=== PATIENT | male | born 1960 | race Two or more races ===

== ENCOUNTER 2023-11-25 09:32 | Inpatient (IN) | payer MEDICAID ==
[~2023-11-25] VITALS: Ht 162.6 cm; Wt 95.0 kg
[2023-11-25 10:43] VITALS: PULSE 98; RESP 17; O2SAT 93
[2023-11-25 11:10] LABS: Alanine Aminotransferase 19 U/L (7-40); Albumin 3.4 g/dL (3.2-4.8); Alkaline Phosphatase 136 U/L (46-116); Anion Gap 9 (5-15); Aspartate Aminotransferase 23 U/L (13-40); BUN/Creatinine Ratio 17.1 (10.0-20.0); Bilirubin, Total 1.5 mg/dL (0.2-1.0); Blood Urea Nitrogen 21 mg/dL (9-23); Carbon Dioxide 28 mmol/L (20-30); Chloride 105 mmol/L (98-107); Glucose 175 mg/dL (74-106); Potassium 3.2 mmol/L (3.5-5.1); Sodium 142 mmol/L (136-145); Total Protein 6.5 g/dL (5.7-8.2)
[2023-11-25 11:11] LABS: Basophils # (auto) 0.1 10 ^3/uL (0-0.2); Basophils % (auto) 1.1 % (0.0-2.0); Eosinophils # (auto) 0 10 ^3/uL (0-0.8); Eosinophils % (auto) 0.9 % (0.0-7.0); Hematocrit 45.3 % (41.0-53.0); Hemoglobin 14.6 g/dL (13.5-17.5); Lymphocytes % (auto) 18.4 % (10.0-50.0); Mean Corpuscular Hgb Conc. 32.2 g/dL (32.0-36.0); Monocytes # (auto) 0.5 10 ^3/uL (0-1.3); Monocytes % (auto) 9.7 % (0.0-12.0); Neutrophils # (auto) 3.9 10 ^3/uL (1.6-8.6); Neutrophils % (auto) 69.9 % (37.0-80.0); Nucleated Red Blood Cells % 0.1 %; Red Blood Cells 5.03 10^6/uL (4.5-5.90); Red Cell Distribution Width 14.9 % (11.8-14.3); White Blood Cell 5.6 10^3/uL (4.4-10.8)
[2023-11-25] MEDS ORDERED: PIPERACILLIN-TAZOB 3.375GM 100 ML IV ONE (11:30)
[2023-11-25] MEDS ORDERED: FUROSEMIDE 40 MG/4 ML VIAL IV ONE (11:30)
[2023-11-25 12:14] LABS: Urine Bacteria NONE SEEN /hpf (None Seen); Urine Blood 1+ /uL (Negative); Urine Clarity Clear (Clear); Urine Color Yellow (Yellow); Urine Protein, UAD 3+ (Negative); Urine Specific Gravity 1.025 (1.001-1.035); Urine Urobilinogen >12.0 mg/dL (Negative); Urine WBC 1 /hpf (0 - 3); Urine pH 6.5 (5.0-8.0)
[2023-11-25] MEDS ORDERED: cefTRIAXone 1GM/50ML D5W 50 ML IV ONE (15:45)
[2023-11-25] MEDS ORDERED: NITROGLYCERIN 0.4 MG SL TAB SL PRN (15:45)
[2023-11-25] MEDS ORDERED: MORPHINE SULFATE INJ 2 MG/ml SYRG IV PRN (15:45)
[2023-11-25] MEDS ORDERED: POTASSIUM CHL 20 Meq TABLET PO ONE (15:45)
[2023-11-25] MEDS ORDERED: LISINOPRIL 5 MG TAB PO ONE (16:00)
[2023-11-25 16:40] LABS: Blood Alcohol 3.9 mg/dL (<10); INR 1.18 (0.9-1.15); Partial Thromboplastin Time 26.5 SEC (24.5-34.5); Prothrombin Time 12.3 sec (9.3-11.8)
[2023-11-25] MEDS ORDERED: DEXTROSE (50%) 50ML SYRG IV PRN (16:45)
[2023-11-25 17:00] LABS: Magnesium 1.9 mg/dL (1.6-2.6)
[2023-11-25] MEDS ORDERED: InsuLIN REG 1unit/0.01ml Soln (100units/ml) SC SCH (17:00)
[2023-11-25] MEDS ORDERED: ACCU-CHEK COMFORT CURVE STRIP VI SCH (17:00)
[2023-11-25] MEDS ORDERED: VANCOMYCIN PER PHARMACY 0 MG IV SCH (17:00)
[2023-11-25] MEDS: VANCOMYCIN 1GM/200ML 200 ML IV SCH (17:29)
[2023-11-25] MEDS: FUROSEMIDE 40 MG/4 ML VIAL IV SCH (17:31)
[2023-11-25 17:41] LABS: Amphetamine Screen, Urine Neg (NEGATIVE); Barbiturate Scree,Urine Neg (NEGATIVE); Benzodiazephine Screen, Urine Neg (NEGATIVE); Cannabinoid Screen, Urine Neg (NEGATIVE); Cocaine Screen, Urine Neg (NEGATIVE); Opiate Scree,Urine Neg (NEGATIVE); Phencyclidine Screen, Urine Neg (NEGATIVE)
[2023-11-25 18:08] LABS: COVID19 ANTIGEN SOFIA FIA NEGATIVE (NEGATIVE); Rapid Influenza A Negative (Negative); Rapid Influenza B Negative (Negative)
[2023-11-25] MEDS ORDERED: ASPirin 81 mg TAB PO ONE (18:45)
[2023-11-25] MEDS ORDERED: ENOXAPARIN SOD 40 MG/0.4 ML SYRINGE SC ONE (18:45)
[2023-11-25] MEDS ORDERED: INSULIN LANTUS (GLARGINE) 1 /0.01ml (100units/ml) SC ONE (18:45)
[2023-11-25 20:00] VITALS: PULSE 100; RESP 18; O2SAT 95
[2023-11-25] MEDS ORDERED: ACETAMINOPHEN 500 MG TAB PO PRN (20:00)
[2023-11-25] MEDS ORDERED: diphenhdrAMINE HCL 25 MG CAP PO PRN (20:00)
[2023-11-25] MEDS: ATORVASTATIN 20 MG TAB PO SCH (22:19)
[2023-11-26 05:28] LABS: Basophils # (auto) 0 10 ^3/uL (0-0.2); Basophils % (auto) 0.6 % (0.0-2.0); Eosinophils # (auto) 0.1 10 ^3/uL (0-0.8); Eosinophils % (auto) 1.2 % (0.0-7.0); Hematocrit 44.1 % (41.0-53.0); Hemoglobin 14.5 g/dL (13.5-17.5); Lymphocytes # (auto) 1.2 10 ^3/uL (0.4-5.4); Lymphocytes % (auto) 20.7 % (10.0-50.0); Mean Corpuscular Hemoglobin 29.5 pg (28.0-32.0); Mean Corpuscular Hgb Conc. 32.8 g/dL (32.0-36.0); Mean Corpuscular Volume 89.7 fL (80.0-100.0); Monocytes # (auto) 0.7 10 ^3/uL (0-1.3); Monocytes % (auto) 12.3 % (0.0-12.0); Neutrophils # (auto) 3.9 10 ^3/uL (1.6-8.6); Neutrophils % (auto) 65.2 % (37.0-80.0); Red Blood Cells 4.92 10^6/uL (4.5-5.90); Red Cell Distribution Width 14.7 % (11.8-14.3); White Blood Cell 5.9 10^3/uL (4.4-10.8)
[2023-11-26 05:45] LABS: Alanine Aminotransferase 14 U/L (7-40); Albumin 3.4 g/dL (3.2-4.8); Alkaline Phosphatase 126 U/L (46-116); Anion Gap 8 (5-15); Aspartate Aminotransferase 19 U/L (13-40); BUN/Creatinine Ratio 13.4 (10.0-20.0); Blood Urea Nitrogen 15 mg/dL (9-23); Calcium 8.2 mg/dL (8.7-10.4); Carbon Dioxide 29 mmol/L (20-30); Chloride 106 mmol/L (98-107); Glucose 88 mg/dL (74-106); Magnesium 1.8 mg/dL (1.6-2.6); Potassium 3.3 mmol/L (3.5-5.1); Sodium 143 mmol/L (136-145)
[2023-11-26 05:46] LABS: Bilirubin, Total 1.4 mg/dL (0.2-1.0); Total Protein 6.7 g/dL (5.7-8.2)
[2023-11-26] MEDS: FUROSEMIDE 40 MG/4 ML VIAL IV SCH ×2 (06:56→17:00)
[2023-11-26] MEDS: INSULIN LISPRO (HUMAN) 100 UNITS/ML ML SC SCH ×3 (07:00→17:00)
[2023-11-26] MEDS: ACCU-CHEK COMFORT CURVE STRIP VI SCH ×3 (07:08→17:00)
[2023-11-26 07:30] VITALS: RESP 18; O2SAT 97
[2023-11-26] MEDS: POTASSIUM CHL 20 Meq TABLET PO SCH ×2 (08:56→09:46)
[2023-11-26] MEDS: ENOXAPARIN SOD 40 MG/0.4 ML SYRINGE SC SCH (09:45)
[2023-11-26] MEDS: MAGNESIUM OXIDE 400 MG TAB PO SCH (09:46)
[2023-11-26] MEDS: ASPirin 81 mg TAB PO SCH (09:46)
[2023-11-26] MEDS: INSULIN LANTUS (GLARGINE) 1 /0.01ml (100units/ml) SC SCH (09:49)
[2023-11-26] MEDS ORDERED: LISINOPRIL 5 MG TAB PO SCH ×2 (10:00)
[2023-11-26] MEDS: VANCOMYCIN 1GM/200ML 200 ML IV SCH (10:06)
[2023-11-26] MEDS: cefTRIAXone 1GM/50ML D5W 50 ML IV SCH (10:07)
[2023-11-26] MEDS ORDERED: hydrALAZINE HCL 20 MG/ML VL IV PRN (10:45)
[2023-11-26] MEDS ORDERED: CARVEDILOL 3.125 MG TAB PO ONE (14:00)
[2023-11-26 16:07] VITALS: BP 165/98; RESP 19; TEMP 98.3
[2023-11-26 16:25] VITALS: BP 165/98; PULSE 90; RESP 19; TEMP 98.3; O2SAT 95
[2023-11-26 17:00] VITALS: BP 149/90; PULSE 90; RESP 17; TEMP 98.3; O2SAT 95
[2023-11-26 20:00] VITALS: PULSE 100; RESP 20; O2SAT 95
[2023-11-26] MEDS: ATORVASTATIN 20 MG TAB PO SCH (23:03)
[2023-11-26] MEDS: CARVEDILOL 3.125 MG TAB PO SCH (23:03)
[2023-11-27 05:00] VITALS: BP 144/97; PULSE 82; RESP 20; TEMP 97.9; O2SAT 95
[2023-11-27] MEDS: INSULIN LISPRO (HUMAN) 100 UNITS/ML ML SC SCH ×3 (05:58→17:00)
[2023-11-27] MEDS: ACCU-CHEK COMFORT CURVE STRIP VI SCH ×3 (05:59→17:28)
[2023-11-27] MEDS: FUROSEMIDE 40 MG/4 ML VIAL IV SCH ×2 (06:11→17:28)
[2023-11-27] MEDS ORDERED: EMPAGLIFLOZIN 10 MG TAB PO SCH ×2 (07:00)
[2023-11-27 07:45] LABS: Basophils # (auto) 0 10 ^3/uL (0-0.2); Basophils % (auto) 0.8 % (0.0-2.0); Eosinophils # (auto) 0.1 10 ^3/uL (0-0.8); Eosinophils % (auto) 1.8 % (0.0-7.0); Hematocrit 44.6 % (41.0-53.0); Hemoglobin 14.4 g/dL (13.5-17.5); Lymphocytes # (auto) 1.2 10 ^3/uL (0.4-5.4); Lymphocytes % (auto) 22.6 % (10.0-50.0); Mean Corpuscular Hemoglobin 29.1 pg (28.0-32.0); Mean Corpuscular Hgb Conc. 32.4 g/dL (32.0-36.0); Mean Corpuscular Volume 89.9 fL (80.0-100.0); Monocytes # (auto) 0.6 10 ^3/uL (0-1.3); Monocytes % (auto) 11.9 % (0.0-12.0); Neutrophils # (auto) 3.3 10 ^3/uL (1.6-8.6); Neutrophils % (auto) 62.9 % (37.0-80.0); Nucleated Red Blood Cells % 0.2 %; Red Blood Cells 4.96 10^6/uL (4.5-5.90); Red Cell Distribution Width 14.7 % (11.8-14.3); White Blood Cell 5.2 10^3/uL (4.4-10.8)
[2023-11-27 08:00] VITALS: BP 149/91; PULSE 75; PULSE 89; RESP 16; TEMP 97.6; O2SAT 94
[2023-11-27 08:38] LABS: Alanine Aminotransferase 14 U/L (7-40); Alkaline Phosphatase 128 U/L (46-116); Anion Gap 8 (5-15); BUN/Creatinine Ratio 15.7 (10.0-20.0); Blood Urea Nitrogen 22 mg/dL (9-23); Calcium 8.3 mg/dL (8.7-10.4); Carbon Dioxide 30 mmol/L (20-30); Chloride 104 mmol/L (98-107); Glucose 108 mg/dL (74-106); Magnesium 1.9 mg/dL (1.6-2.6); Potassium 3.9 mmol/L (3.5-5.1); Sodium 142 mmol/L (136-145)
[2023-11-27 08:39] LABS: Albumin 3.4 g/dL (3.2-4.8); Aspartate Aminotransferase 24 U/L (13-40)
[2023-11-27 08:40] LABS: Total Protein 6.5 g/dL (5.7-8.2)
[2023-11-27] MEDS: cefTRIAXone 1GM/50ML D5W 50 ML IV SCH (09:54)
[2023-11-27] MEDS: ENOXAPARIN SOD 40 MG/0.4 ML SYRINGE SC SCH (09:56)
[2023-11-27] MEDS: ASPirin 81 mg TAB PO SCH (09:56)
[2023-11-27] MEDS: SPIRONOLACTONE 25 MG TAB PO SCH (09:57)
[2023-11-27] MEDS: MAGNESIUM OXIDE 400 MG TAB PO SCH (09:57)
[2023-11-27] MEDS: CARVEDILOL 3.125 MG TAB PO SCH (09:57)
[2023-11-27] MEDS: INSULIN LANTUS (GLARGINE) 1 /0.01ml (100units/ml) SC SCH (10:02)
[2023-11-27 12:00] VITALS: BP 146/91; PULSE 75; RESP 16; TEMP 97.5; O2SAT 97
[2023-11-27] MEDS ORDERED: DOCUSATE SOD 100 MG CAP PO ONE (12:15)
[2023-11-27] MEDS ORDERED: methylPREDNISolone SOD SUCC 40 MG/ML VL IV ONE (12:15)
[2023-11-27 16:00] VITALS: BP 126/84; PULSE 75; RESP 18; TEMP 98.1; O2SAT 96
[2023-11-27 20:00] VITALS: PULSE 90; RESP 18; O2SAT 97
[2023-11-27 22:00] VITALS: BP 157/100; PULSE 76; RESP 18; TEMP 97.5; O2SAT 97
[2023-11-27] MEDS ORDERED: methylPREDNISolone SOD SUCC 40 MG/ML VL IV SCH (22:00)
[2023-11-28] MEDS: HYDROCORTONE 1% TOPICAL CREAM 30 GM TUBE TOP SCH ×2 (00:35→11:53)
[2023-11-28] MEDS: SACUBITRIL-VALSARTAN 24mg/26mg TAB PO SCH ×2 (00:35→09:49)
[2023-11-28] MEDS: CARVEDILOL 3.125 MG TAB PO SCH ×2 (00:36→09:50)
[2023-11-28] MEDS: ATORVASTATIN 20 MG TAB PO SCH (00:36)
[2023-11-28] MEDS: DOCUSATE SOD 100 MG CAP PO SCH ×2 (00:43→09:49)
[2023-11-28 05:00] VITALS: BP 122/66; PULSE 73; RESP 16; TEMP 97.4; O2SAT 96
[2023-11-28] MEDS: ACCU-CHEK COMFORT CURVE STRIP VI SCH ×3 (05:45→18:09)
[2023-11-28] MEDS: INSULIN LISPRO (HUMAN) 100 UNITS/ML ML SC SCH ×3 (06:10→17:00)
[2023-11-28] MEDS: FUROSEMIDE 40 MG/4 ML VIAL IV SCH ×2 (06:20→18:09)
[2023-11-28 06:28] LABS: Basophils # (auto) 0 10 ^3/uL (0-0.2); Basophils % (auto) 0.1 % (0.0-2.0); Eosinophils # (auto) 0 10 ^3/uL (0-0.8); Hemoglobin 14.7 g/dL (13.5-17.5); Lymphocytes # (auto) 0.6 10 ^3/uL (0.4-5.4); Mean Corpuscular Hemoglobin 28.7 pg (28.0-32.0); Mean Corpuscular Hgb Conc. 31.9 g/dL (32.0-36.0); Mean Corpuscular Volume 89.8 fL (80.0-100.0); Monocytes # (auto) 0.1 10 ^3/uL (0-1.3); Monocytes % (auto) 1.9 % (0.0-12.0); Neutrophils # (auto) 5.7 10 ^3/uL (1.6-8.6); Nucleated Red Blood Cells % 0.1 %; Red Blood Cells 5.12 10^6/uL (4.5-5.90); Red Cell Distribution Width 14.4 % (11.8-14.3); White Blood Cell 6.5 10^3/uL (4.4-10.8)
[2023-11-28 06:31] LABS: Alanine Aminotransferase 14 U/L (7-40); Albumin 3.1 g/dL (3.2-4.8); Alkaline Phosphatase 123 U/L (46-116); Anion Gap 12 (5-15); Aspartate Aminotransferase 21 U/L (13-40); BUN/Creatinine Ratio 16.9 (10.0-20.0); Blood Urea Nitrogen 21 mg/dL (9-23); Calcium 8.2 mg/dL (8.7-10.4); Carbon Dioxide 24 mmol/L (20-30); Chloride 103 mmol/L (98-107); Glucose 161 mg/dL (74-106); Magnesium 1.9 mg/dL (1.6-2.6); Potassium 3.5 mmol/L (3.5-5.1); Sodium 139 mmol/L (136-145); Total Protein 6.3 g/dL (5.7-8.2)
[2023-11-28] MEDS ORDERED: ceFAZolin 2 GM/D5W100ml 100 ML IV ONE (07:45)
[2023-11-28 08:00] VITALS: PULSE 70
[2023-11-28 08:10] VITALS: O2SAT 95
[2023-11-28 08:59] LABS: Hepatitis B Surface Antibody Negative (Negative)
[2023-11-28 09:00] VITALS: BP 131/70; PULSE 70; RESP 14; TEMP 97.7; O2SAT 95
[2023-11-28 09:10] LABS: Hepatitis B Surface Antigen Negative (Negative)
[2023-11-28 09:32] LABS: Hepatitis B Core IgM Negative; Hepatitis C Antibody Negative (Negative)
[2023-11-28] MEDS: MAGNESIUM OXIDE 400 MG TAB PO SCH (09:49)
[2023-11-28] MEDS: ASPirin 81 mg TAB PO SCH (09:49)
[2023-11-28] MEDS: SPIRONOLACTONE 25 MG TAB PO SCH (09:50)
[2023-11-28] MEDS: ENOXAPARIN SOD 40 MG/0.4 ML SYRINGE SC SCH (09:50)
[2023-11-28] MEDS: INSULIN LANTUS (GLARGINE) 1 /0.01ml (100units/ml) SC SCH (09:58)
[2023-11-28 13:00] VITALS: BP 134/79; PULSE 69; RESP 16; TEMP 98.1; O2SAT 95
[2023-11-28] MEDS ORDERED: ceFAZolin 2 GM/D5W100ml 100 ML IV SCH ×2 (14:00→18:00)
[2023-11-28 17:00] VITALS: BP 127/79; PULSE 71; RESP 14; TEMP 98.2; O2SAT 97
[2023-11-29 08:06] LABS: Complement C3 154 mg/dL (82-167)
[2023-11-29 10:06] LABS: Hepatitis B Core Total Antibod Negative (Negative)
[2023-11-29 14:06] LABS: Anti-Nuclear Antibody Direct Positive (Negative)
== END 2023-11-28 19:50 | disposition home or self-care (01) | DRG 194 ==
LOC: ER 09:32 → TELE 15:43 → TELE-CENTR 11-26 16:13
PROVIDERS: ADMIT Internal Medicine; ATTEND Internal Medicine
DX: I11.0 Hypertensive heart disease with heart failure (principal); I27.20 Pulmonary hypertension, unspecified; G30.9 Alzheimer's disease, unspecified; F02.80 Dementia in other diseases classified elsewhere, unspecified severity, without behavioral disturbance, psychotic disturbance, mood disturbance, and anxiety; L03.115 Cellulitis of right lower limb; L03.116 Cellulitis of left lower limb; I50.43 Acute on chronic combined systolic (congestive) and diastolic (congestive) heart failure; E11.9 Type 2 diabetes mellitus without complications; E87.6 Hypokalemia; E78.5 Hyperlipidemia, unspecified; E66.9 Obesity, unspecified; K59.00 Constipation, unspecified; Z20.822 Contact with and (suspected) exposure to COVID-19; F17.210 Nicotine dependence, cigarettes, uncomplicated; I08.3 Combined rheumatic disorders of mitral, aortic and tricuspid valves; Z68.35 Body mass index [BMI] 35.0-35.9, adult; Z98.2 Presence of cerebrospinal fluid drainage device; Z91.199 Patient's noncompliance with other medical treatment and regimen due to unspecified reason; Z79.82 Long term (current) use of aspirin; Z79.899 Other long term (current) drug therapy; Z86.73 Personal history of transient ischemic attack (TIA), and cerebral infarction without residual deficits
CPT/HCPCS: 36415; 71045; 78582; 80053; 80202; 80307; 80320; 81001; 82565; 82607; 82962; 83036; 83605; 83735; 83880; 84443; 84484; 85025; 85379; 85610; 85730; 86038; 86160; 86705; 86706; 86803; 87040; 87081; 87340; 87426; 87804; 93005; 93306; 93971; 99291; G0378; J1815; J2543